=== PATIENT | male | born 1990 | race Asian ===

== ENCOUNTER 2017-11-25 02:08 | Emergency (ER) | payer BC ==
[~2017-11-25] VITALS: Ht 165.1 cm; Wt 72.6 kg
[~2017-11-25 02:08] MED LIST: AMOX500C2 PO; AMX500CIP PO; CIPR500T78 PO; CLIN300C11 PO; HYDR-1231 PO; HYDR-756 PO; HYDR1TAB PO; HYOS0.1216 PO; IBUP800T26 PO; METR500T PO; NAPR-243 PO; SENN17.26 PO; TRAM50TA2 PO; [UNRECOGNIZED DRUG - REMARK] PO
--- OUTSIDE RECORDS SUMMARY | 2017-11-25 02:14 | XMS REPORT ---
Author Author ANDREA LONG Organization [facility] Address [address] [place] [address] Care Team Providers Care Commercial Painter Name Role Phone ANDREA LONG Unavailable PROBLEMS Unknown Problems ALLERGIES Substance Reaction Event Type Date Status Keflex anaphylaxis Drug Allergy Dec, Active SOCIAL HISTORY Never Assessed PLAN OF CARE Activity Details Follow Up prn Reason: VITAL SIGNS Height 64 in 2017-01-10 Weight 165.5 lbs 2017-01-10 Temperature 98.6 degrees Fahrenheit 2017-01-10 Heart Rate 74 bpm 2017-01-10 Respiratory Rate 16 2017-01-10 BMI 28.40 kg/m2 2017-01-10 Blood pressure systolic 120 mmHg 2017-01-10 Blood pressure diastolic 78 mmHg 2017-01-10 MEDICATIONS Medication Instructions Dosage Frequency Start Date End Date Duration Status Chantix Starting Month Kuldeep 0.5 MG X 11 & 1 MG X 42 Orally Once a day one tablet 24h Dec, Active RESULTS No Results PROCEDURES No Known procedures IMMUNIZATIONS No Known Immunizations
--- OUTSIDE RECORDS SUMMARY | 2017-11-25 02:14 | XMS REPORT ---
Author Author ANDREA LONG [facility] Address [address] [place] [address] Care Team Providers Care Automobile Travel Club Counselor Name Role Phone ANDREA LONG Unavailable PROBLEMS Unknown Problems ALLERGIES Substance Reaction Event Type Date Status Keflex anaphylaxis Drug Allergy Dec, Active SOCIAL HISTORY Never Assessed PLAN OF CARE VITAL SIGNS MEDICATIONS No Known Medications RESULTS No Results PROCEDURES No Known procedures IMMUNIZATIONS No Known Immunizations
--- OUTSIDE RECORDS SUMMARY | 2017-11-25 02:14 | XMS REPORT ---
Author Author GITA RAY [facility] eClinicalWorks Address Unknown Phone Unavailable Care Team Providers Care Blacksmith Apprentice Name Role Phone GITA RAY CP Unavailable Allergies, Adverse Reactions, Alerts Substance Reaction Event Type Keflex Info Not Available Drug Allergy Problems Problem Type Condition Code Onset Dates Condition Status Assessment Closed fracture of one rib of right side with routine healing, subsequent encounter S22.31XD Active Medications Medication Code System Code Instructions Start Date End Date Status Dosage Hydrocodone-Acetaminophen [facility] [address]-05 5-325 MG Orally every 6 hrs 1 tablet as needed Procedures Procedure Coding System Code Date Office Visit, Est Pt., Level 2 CPT-4 61487 Aug 26, 2016 Vital Signs Date/Time: Aug 26, 2016 Cardiac Monitoring Heart Rate 80 bpm Weight 149.2 lbs Height 64 in BMI 25.61 Index Blood Pressure Diastolic 81 mmHg Blood Pressure Systolic 118 mmHg Results No Known Results Summary Purpose eClinicalWorks Submission
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
[2017-11-25] MEDS ORDERED: IBUPROFEN 800 MG (MOTRIN) TAB PO STA (03:15)
[2017-11-25] MEDS ORDERED: DOXYCYCLINE 100 MG (VIBRAMYCIN) TABLET PO STA (03:15)
--- NOTE | 2017-11-25 03:15 | ED Lower Extremity ---
General Stated Complaint: HERNIA ON RT SIDE GROIN,HURTS TO COUGH,SWOLLEN Source: patient Exam Limitations: no limitations History of Present Illness Date Seen by Provider: Nov 25, 2017 Time Seen by Provider: 03:03 Initial Comments Here with complaint of pain to the right groin. States that it's worse today. Thinks he might have a hernia. Also has athlete's foot that he's been taking care of with zskr-url-irrcner cream. Does where the same pair of boots every day. Denies problems with bowel movements or bladder. Still having stool and passing gas. Denies fever or chills. Onset: yesterday Severity: moderate Method of Injury: unknown Modifying Factors: Improves With Immobilization, Worse With Movement Allergies and Home Medications Allergies Coded Allergies: Cephalexin Monohydrate (Verified Allergy, Unknown, HIVES, , 08/26/12) Home Medications Hydrocodone/Acetaminophen 1 Each Tablet, 1 EACH PO Q4H PRN for PAIN, #30 Prescribed by: JEFF OSBORN on 08/22/16 1421 Constitutional: see HPI, No chills, No fever Respiratory: no symptoms reported Cardiovascular: no symptoms reported Musculoskeletal: see HPI, muscle pain Skin: no symptoms reported Other Right groin pain with swelling Past Xecmftm-Ahfmdk-Fwmbra Hx Patient Social History Alcohol Use: Occasionally Uses Alcohol Beverage of Choice: Beer Recreational Drug Use: No Smoking Status: Current Everyday Smoker Type Used: Cigarettes Recent Foreign Travel: No Contact w/Someone Who Travel: No Recent Hopitalizations: No Immunizations Up To Date Tetanus Booster (TDap): Less than 5yrs Seasonal Allergies Seasonal Allergies: No Surgeries History of Surgeries: No Respiratory History of Respiratory Disorde: No Cardiovascular History of Cardiac Disorders: No Neurological History of Neurological Disord: No Reproductive System Hx Reproductive Disorders: No Reviewed Nursing Assessment Reviewed/Agree w Nursing PMH: Yes Family Medical History Significant Family History: No Pertinent Family Hx Physical Exam Vital Signs Capillary Refill : General Appearance: WD/WN, no apparent distress Neck: non-tender, full range of motion, supple, No lymphadenopathy (R), No lymphadenopathy (L) Cardiovascular: regular rate, rhythm, no murmur Respiratory: lungs clear, normal breath sounds Gastrointestinal: non tender, soft Feet: bilateral foot other (bilateral feet with fungal infection and multiple little punctate areas consistent with athlete's foot.) Neurologic/Tendon: normal sensation, normal motor functions Neurologic/Psychiatric: alert, oriented x 3 Lymphatic: inguinal node tender (R), No inguinal node tender (L) Laceration Repair : Suture Size: 5-0 Progress/Results/Core Measures Progress Note : Progress Note Seen and evaluated. No hernia noted but there is lymphadenopathy on the right groin. Further inspection of the right leg noted the athlete's foot with the punctate lesions on both feet. I believe the lymphadenopathy is related to this. We will initiate doxycycline and I didn't discuss with the patient about control and treatment of athlete's foot including irritable bladder, frequent sock changes and alternating boots daily. Serzone with return precautions. Patient verbalize understanding instructions and agreement with plan. Departure Impression Impression: Primary Impression: Lymphadenopathy, inguinal Additional Impression: Tinea pedis of both feet Disposition: HOME, SELF-CARE Condition: Stable Departure-Patient Inst. Decision time for Depature: 03:17 Referrals: [facility] (PCP/Family) Primary Care Physician Patient Instructions: Athlete's Foot (DC), LYMPH NODE SWELLING Add. Discharge Instructions: Use antifungal powder to the feet daily per package directions. Change your socks often and alternate boots every other day. You may take ibuprofen 800 mg every 8 hours as needed for pain. You may take Tylenol 1000 mg every 8 hours as needed for pain. Drink plenty of fluids. Follow-up with your DrShannon in a few days for recheck. Return for worse pain, fever, swelling or other concerns as needed. Scripts Doxycycline Hyclate (Doxycycline Hyclate) 100 Mg Tablet 100 MG PO BID, #20 TAB 0 Refills Prov: MARIA ELENA ROSE MD 11/25/17 MARIA ELENA ROSE MD Nov 25, 2017 03:15
[2017-11-25] MEDS ORDERED: DOXY100T2 PO (03:19)
[2017-11-25 03:30] VITALS: BP 138/90
== END 2017-11-25 03:30 | disposition home or self-care (01) ==
LOC: EDUNIT# 02:08 → ER 02:11
DX: B35.3 Tinea pedis (principal); R59.0 Localized enlarged lymph nodes; F17.210 Nicotine dependence, cigarettes, uncomplicated; Z88.1 Allergy status to other antibiotic agents
CPT/HCPCS: 99283

== ENCOUNTER 2018-05-24 17:30 | Emergency (ER) | payer BC ==
[~2018-05-24] VITALS: Ht 162.6 cm; Wt 69.9 kg
[~2018-05-24 17:30] MED LIST changes: +DOXY100T2 PO
[2018-05-24 18:40] LABS: BILIRUBIN,URINE NEGATIVE (NEGATIVE); CLARITY,URINE CLEAR; COLOR,URINE YELLOW; GLUCOSE, URINE (UA) NEGATIVE (NEGATIVE); KETONES,URINE 4+ (NEGATIVE); LEUKOCYTE ESTERASE ,URINE 1+ (NEGATIVE); NITRITE,URINE NEGATIVE (NEGATIVE); PH,URINE 5 (5-9); PROTEIN,URINE 2+ (NEGATIVE); UROBILINOGEN,URINE NORMAL (NORMAL)
[2018-05-24 18:52] LABS: BACTERIA,URINE TRACE /HPF; GRANULAR CASTS,URINE RARE /LPF; SQUAMOUS EPITHELIAL CELL,UR RARE /HPF
[2018-05-24 18:53] LABS: AMPHETAMINE SCREEN, URINE NEGATIVE (NEGATIVE); BARBITURATE SCREEN URINE NEGATIVE (NEGATIVE); BENZODIAZEPINES SCREEN URINE NEGATIVE (NEGATIVE); CANNABINOID SCREEN, URINE NEGATIVE (NEGATIVE); COCAINE SCREEN URINE NEGATIVE (NEGATIVE); METHADONE STAT NEGATIVE (NEGATIVE); METHAMPHETAMINE SCREEN URINE S NEGATIVE (NEGATIVE); OPIATE SCREEN URINE NEGATIVE (NEGATIVE); OXYCODONE STAT NEGATIVE (NEGATIVE); PROPOXYPHENE STAT NEGATIVE (NEGATIVE); TRICYCLIC ANTIDEPRESSANTS SCRE NEGATIVE (NEGATIVE)
--- NOTE | 2018-05-24 19:21 | Diagnostic Imaging Report ---
PROCEDURE: CT cervical spine without contrast. TECHNIQUE: Multiple contiguous axial images were obtained through the cervical spine without the use of intravenous contrast. Sagittal and coronal reformations were then performed. INDICATION: Numbness in the posterior aspect of the bilateral hands. Reports the injury happened yesterday. COMPARISON: None. FINDINGS: There is reversal of the cervical lordosis centered at C5-6, which is nonspecific, and can be due to positioning. There is minimal left convex curvature of the lower cervical spine. No spondylolisthesis is seen. 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 Small disc bulges are noted at C5-6 and C6-7. The paraspinous soft tissues are unremarkable. No acute fracture is seen. IMPRESSION: 1. No acute fracture is seen in the cervical spine. 2. Mild reversal of the cervical lordosis, which is nonspecific and could be positional. 3. 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 Dictated by: Dictated on workstation # [id number]
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
--- NOTE | 2018-05-24 19:26 | Diagnostic Imaging Report ---
PATIENT HISTORY: Fall, numbness in the right knee and distally. TECHNIQUE: AP and lateral views of the right tibia/fibula. COMPARISON: None FINDINGS: No acute fracture or dislocation is seen in the right tibia/fibula. Alignment appears normal. The joint spaces are preserved. A small eccentric sclerotic focus measuring 1.5 cm is seen at the lateral aspect of the distal right tibial metaphysis, most consistent with a fibroxanthoma. IMPRESSION: No acute osseous abnormality is seen in the right tibia/fibula. Dictated by: Dictated on workstation # [id number]
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
--- NOTE | 2018-05-24 19:28 | Diagnostic Imaging Report ---
PATIENT HISTORY: Fall, numbness in the right knee distally. TECHNIQUE: AP view of the pelvis, AP and frog-leg lateral views of the right hip. COMPARISON: CT of the abdomen and pelvis from 07/04/2014 FINDINGS: No acute fracture or dislocation is seen in the pelvis or the right hip. Alignment appears normal. The femoral heads are well-seated in the acetabula bilaterally. Small cystlike changes are seen at the lateral aspect of the head neck junction, may represent a synovial herniation pit, and appear stable since 2013. A bone island is noted at the right acetabulum. IMPRESSION: No acute osseous abnormality seen in the pelvis or right hip. Dictated by: Dictated on workstation # [id number]
[2018-05-24] MEDS ORDERED: NAPR-915 PO (19:32)
[2018-05-24] MEDS ORDERED: RX-CYCLOBENZAPRINE 10 MG (FLEXERIL) TAB PPK#3 PO STA (19:32)
[2018-05-24] MEDS ORDERED: CYCL10TA9 PO (19:32)
[2018-05-24] MEDS ORDERED: RX-NAPROXEN (NAPROSYN) 250 MG TAB PPK#4 PO STA (19:32)
[2018-05-24 19:35] VITALS: BP 123/88
[2018-05-24] MEDS ORDERED: RX-CYCLOBENZAPRINE 10 MG (FLEXERIL) TAB PPK#3 PO ONE (19:56)
[2018-05-24] MEDS ORDERED: RX-NAPROXEN (NAPROSYN) 250 MG TAB PPK#4 PO ONE ×2 (19:56→19:58)
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
== END 2018-05-24 19:35 | disposition home or self-care (01) ==
LOC: EDUNIT# 17:30 → ER 17:32
DX: S39.012A Strain of muscle, fascia and tendon of lower back, initial encounter (principal); R20.2 Paresthesia of skin; D64.9 Anemia, unspecified; F17.210 Nicotine dependence, cigarettes, uncomplicated; Z88.1 Allergy status to other antibiotic agents; Y04.8XXA Assault by other bodily force, initial encounter
CPT/HCPCS: 72125; 72128; 72131; 73590; 80306; 81000

== ENCOUNTER 2018-10-14 12:57 | Emergency (ER) | payer SELFPAY ==
[~2018-10-14] VITALS: Ht 162.6 cm; Wt 67.1 kg
[~2018-10-14 12:57] MED LIST changes: +CYCL10TA9 PO; +HYDR-4227 PO; -HYDR-756 PO; +NAPR-915 PO
--- NOTE | 2018-10-14 14:26 | ED Cough/URI ---
General Chief Complaint: Cough/Cold/Flu Symptoms Stated Complaint: CHEST CONGESTION;COUGH Nursing Triage Note: Pt reports cough and congestion and headache x2 weeks Source: patient Exam Limitations: no limitations History of Present Illness Date Seen by Provider: Oct 14, 2018 Time Seen by Provider: 14:25 Allergies and Home Medications Allergies Coded Allergies: Cephalexin Monohydrate (Verified Allergy, Unknown, HIVES, , 08/26/12) Home Medications Cyclobenzaprine HCl 10 Mg Tablet, 10 MG PO Q8H Prescribed by: JAZZY JANG on 05/24/181931 Doxycycline Hyclate 100 Mg Tablet, 100 MG PO BID Prescribed by: MARIA ELENA ROSE on 11/25/17 0319 Hydrocodone/Acetaminophen 1 Each Tablet, 1 EACH PO Q4H PRN for PAIN Prescribed by: JEFF OSBORN on 08/22/16 1421 Naproxen 500 Mg Tablet, 500 MG PO BID Prescribed by: JAZZY JANG on 05/24/181931 Past Xgtjhcb-Nhmiyb-Nfqzhk Hx Patient Social History Alcohol Beverage of Choice: Beer Type Used: Cigarettes 2nd Hand Smoke Exposure: Yes Recent Foreign Travel: No Contact w/Someone Who Travel: No Recent Infectious Disease Expo: No Recent Hopitalizations: No Immunizations Up To Date Tetanus Booster (TDap): Less than 5yrs Seasonal Allergies Seasonal Allergies: No Past Medical History Surgeries: No Respiratory: No Cardiac: No Neurological: No Reproductive Disorders: No Gastrointestinal: No Musculoskeletal: No Endocrine: No Cancer: No Psychosocial: No Integumentary: No Blood Disorders: Yes (ANEMIA) Family Medical History No Pertinent Family Hx Physical Exam Vital Signs - First Documented 10/14/18 14:16 Temp 98.4 Pulse 98 Resp 18 B/P (MAP) 131/79 (96) Pulse Ox 94 O2 Delivery Room Air Capillary Refill : Less Than 3 Seconds Height: 5'4.00" Weight: 148lbs. oz. 67.738744ex; 22.14 BMI Method:Stated Procedures/Interventions Suture Size: 5-0 Progress/Results/Core Measures Suspected Sepsis Recent Fever Within 48 Hours: No Infection Criteria Present: Suspected New Infection New/Unexplained Altered Menta: No Sepsis Screen: No Definite Risk SIRS Temperature:98.4 Pulse: 98 Respiratory Rate: 18 Blood Pressure 131 /79 Mean: 96 Results/Orders My Orders Orders - FRANCIS WOODY Chest 1 View, Ap/Pa Only (10/14/18 14:23) Vital Signs/I&O 10/14/18 14:16 Temp 98.4 Pulse 98 Resp 18 B/P (MAP) 131/79 (96) Pulse Ox 94 O2 Delivery Room Air Capillary Refill : Less Than 3 Seconds Blood Pressure Mean: 96 Departure Impression Primary Impression: Bronchitis Disposition: 01 HOME, SELF-CARE Condition: Stable/Unchanged Departure-Patient Inst. Decision time for Depature: 14:28 Referrals: [facility] (PCP/Family) Primary Care Physician Patient Instructions: Bronchiolitis (DC) Add. Discharge Instructions: You may use Tylenol and ibuprofen as needed for pain. Take medications as directed. Follow-up with her primary care provider within 1 week for recheck. Return back to the emergency room for any worsening symptoms or concerns as needed. All discharge instructions reviewed with patient and/or family. Voiced understanding. Scripts Promethazine/Dextromethorphan (Promethazine-Dm Syrup) 473 Ml Syrup 5 ML PO Q6H PRN for COUGH, #60 ML Prov: FRANCIS WOODY 10/14/18 Azithromycin (Zithromax) 250 Mg Tablet 250 MG PO UD for 1 Day, #6 TAB TAKE 2 TABLETS TODAY, THEN TAKE 1 TABLET DAILY FOR 4 MORE DAYS Prov: FRANCIS WOODY 10/14/18 Methylprednisolone (Medrol) 4 Mg Tab.ds.pk 4 MG PO UD, #1 PKG Prov: FRANCIS WOODY 10/14/18 FRANCIS WOODY Oct 14, 2018 14:26
[2018-10-14] MEDS ORDERED: METH4TAB PO (14:30)
[2018-10-14] MEDS ORDERED: D-ME473S38 PO (14:30)
[2018-10-14] MEDS ORDERED: AZIT250T PO (14:30)
--- OUTSIDE RECORDS SUMMARY | 2018-10-14 14:47 | XMS REPORT ---
Author Author HERRERA BROTHERS [facility] Address [address] [place] [address] Care Team Providers Care Cobol Programmer Name Role Phone DENEEN HERRERA Unavailable PROBLEMS Unknown Problems ALLERGIES No Information ENCOUNTERS Encounter Location Date Diagnosis [place] [id number] [place] [address] May, [place] [address] [address] May, [place] [address] [address] May, Strain of lumbar region, initial encounter S39.012A [place] [id number] [place] [address] May, Abscess L02.91 [place] [address] [address] Dec, Tobacco use Z72.0 and Tobacco abuse counseling Z71.6 [place] [id number] [place] [address] Dec, [place] [address] [address] Aug, Closed fracture of one rib of right side with routine healing, subsequent encounter S22.31XD [place] [address] [address] Jan, [place] [id number] [place] [address] Oct, [place] [address] [address] Oct, [facility] [address] [facility] [id number] [address] Aug, [facility] [address] [id number] [address] Aug, [facility] [address] [facility] [id number], [place] [address] February, [facility] [address] [address] Jan, [facility] [address] [facility] [id number], [place] [address] Jan, [facility] [address] [address] Dec, [facility] [address] [id number] [address] Nov, [facility] [id number], [place] [address] Nov, [facility] [address] [id number] [id number] Nov, [facility] [address] [id number] [address] Sep, [facility] [id number] [address] Aug, [facility] [id number] [address] February, [facility] [address] [facility] [id number], [place] [address] Jul, IMMUNIZATIONS No Known Immunizations SOCIAL HISTORY Never Assessed REASON FOR VISIT Lab order request PLAN OF CARE VITAL SIGNS MEDICATIONS Unknown Medications RESULTS No Results PROCEDURES No Known procedures INSTRUCTIONS MEDICATIONS ADMINISTERED No Known Medications MEDICAL (GENERAL) HISTORY Type Description Date Surgical History lymph node removed 2013
--- OUTSIDE RECORDS SUMMARY | 2018-10-14 14:47 | XMS REPORT ---
Author Author TJ ROSS [facility] Address [address] [place] [address] Care Team Providers Care Life Manager Name Role Phone ROSI ROSSTA Unavailable PROBLEMS Unknown Problems ALLERGIES No Information ENCOUNTERS Encounter Location Date Diagnosis [facility] [address] [address] Sep, [facility] [id number] [place] [address] Sep, [facility] [id number] [place] [address] Sep, Strain of right knee, initial encounter S86.911A [facility] [address] [place] [address] May, [facility] [id number] [place] [address] May, [facility] [id number] [place] [address] May, Strain of lumbar region, initial encounter S39.012A [facility] [id number] [place] [address] May, Abscess L02.91 [facility] [address] [address] Dec, Tobacco use Z72.0 and Tobacco abuse counseling Z71.6 [place] [address] [place] [address] Dec, [facility] [id number] [place] [address] Aug, Closed fracture of one rib of right side with routine healing, subsequent encounter S22.31XD [facility] [address] [id number] [place] [address] Jan, [facility] [id number] [address] Oct, [facility] [id number] [address] Oct, [facility] [address] [id number] [address] Aug, [facility] [address] [id number] [address] Aug, [facility] [address] [id number] [address] February, [facility] [address] [address] Jan, [facility] [address] [address] Jan, [facility] [address] [address] Dec, [facility] [address] [address] Nov, [facility] [id number] [address] Nov, [facility] [address] [id number] [id number] Nov, [facility] [address] [id number] [address] Sep, [facility] [id number] [address] Aug, [facility] [id number] [address] February, [facility] [address] [facility] [id number] [address] Jul, IMMUNIZATIONS No Known Immunizations SOCIAL HISTORY Never Assessed REASON FOR VISIT DI results PLAN OF CARE VITAL SIGNS MEDICATIONS Unknown Medications RESULTS No Results PROCEDURES No Known procedures INSTRUCTIONS MEDICATIONS ADMINISTERED No Known Medications MEDICAL (GENERAL) HISTORY Type Description Date Surgical History lymph node removed 2013
--- OUTSIDE RECORDS SUMMARY | 2018-10-14 14:47 | XMS REPORT ---
Author Author TJ ROSS [facility] Address [address] [place] [address] Care Team Providers Care Compact Assembler Name Role Phone KING TJ Unavailable PROBLEMS Unknown Problems ALLERGIES No Information ENCOUNTERS Encounter Location Date Diagnosis [facility] [id number] [place] [address] 74505- 8928 Sep, [facility] [id number] [place] [address] 73123- 3914 Sep, [facility] [id number] [place] [address] 36223- 6274 Sep, [facility] [id number] [place] [address] 43851- 8947 Sep, Strain of right knee, initial encounter S86.911A [facility] [id number] [place] [address] 34489- 3236 May, [facility] [id number] [place] [address] 12109- 4279 May, [facility] [id number] [place] [address] 03314- 3122 May, Strain of lumbar region, initial encounter S39.012A [facility] [address] [place] [address] 50577- 8030 May, Abscess L02.91 [facility] [id number] [place] [address] 66993- 8592 Dec, Tobacco use Z72.0 and Tobacco abuse counseling Z71.6 [place] [id number] [place] [address] 16731- 2160 Dec, [facility] [address] [facility] [address] [facility] [id number], [place] [address] 4231 Aug, Closed fracture of one rib of right side with routine healing, subsequent encounter S22.31XD [facility] [address] [id number] [place] [address] 8655 Jan, [facility] [address] [id number], [place] [address] 5064 Oct, [facility] [address] [facility] [id number], [place] [address] 8751 Oct, [facility] [address] [id number], [place] [address]- 7367 Aug, [facility] [address] [id number], [place] [address] 0364 Aug, [facility] [address], [place] [address] 3867 February, [facility] [address] [id number], [place] [address] 2965 Jan, [facility] [address], [place] [address]- 7930 Jan, [facility] [address], [place] [address]- 3082 Dec, [facility] [address], [place] [address]- 0998 Nov, [facility] [address] [id number], [place] [address] 5799 Nov, [facility] [address] [id number] [id number] Nov, [facility] [address] [id number] 9225 Sep, [facility] [address] [id number], [place] [address]- 8078 Aug, [facility] [address] [address] [facility] [id number] [place] [address] 9523 February, [facility] [address] [facility] [id number] [place] [address] [address] Jul, IMMUNIZATIONS No Known Immunizations SOCIAL HISTORY Never Assessed REASON FOR VISIT Requests return call PLAN OF CARE VITAL SIGNS MEDICATIONS Unknown Medications RESULTS No Results PROCEDURES No Known procedures INSTRUCTIONS MEDICATIONS ADMINISTERED No Known Medications MEDICAL (GENERAL) HISTORY Type Description Date Surgical History lymph node removed 2013
--- OUTSIDE RECORDS SUMMARY | 2018-10-14 14:47 | XMS REPORT ---
Author Author GITA RAY Organization [facility] Address [address] [place] [address] Care Team Providers Care Textile Cutting Machine Operator Name Role Phone GITA RAY Unavailable PROBLEMS Unknown Problems ALLERGIES Substance Reaction Event Type Date Status Keflex anaphylaxis Drug Allergy May, Active ENCOUNTERS Encounter Location Date Diagnosis [place] [address] 18210- 2545 May, [facility] [id number] [place] [address] 85566- 0119 May, [place] [address] 90389- 4943 May, Strain of lumbar region, initial encounter S39.012A [place] [id number] [place] [address] 13936- 9426 May, Abscess L02.91 [place] [id number] [place] [address] 50050- 8476 Dec, Tobacco use Z72.0 and Tobacco abuse counseling Z71.6 [place] [id number] [place] [address] 16345- 3035 Dec, [place] [id number] [place] [address] 56664- 8325 Aug, Closed fracture of one rib of right side with routine healing, subsequent encounter S22.31XD [place] [id number] [place] [address] 41370- 6628 Jan, [place] [id number] [place] [address] 29155- 3384 Oct, [place] [address] [place] [address]- 2546 Oct, [facility] [address] [id number], [place] [address]- 2546 Aug, [facility] [address] [id number], [place] [address]- 2546 Aug, [facility] [address] [id number], [place] [address]- 2546 February, [facility] [address]65100[place], [place] [address]- 2546 Jan, [facility] [address]65[address], [place] [address]- 2546 Jan, [facility] [address], [place] [address]- 2546 Dec, [facility] [address]65[address], [place] [address]- 2546 Nov, [facility] [address] [id number], [place] [address]- 2546 Nov, [facility] [address] [id number] [id number] Nov, [facility] [address] [id number], [place] [address]- 2546 Sep, [facility] [address] [id number], [place] [address]- 2546 Aug, [facility] [address] [id number], [place] [address]- 2546 February, [facility] [address] [id number], [place] [address]- 2546 Jul, IMMUNIZATIONS No Known Immunizations SOCIAL HISTORY Never Assessed REASON FOR VISIT Hospital f/u, Pt went to the Hospital on Friday due to possible never damage lower part of spine. MALLORY Nguyen PLAN OF CARE Activity Details Follow Up prn Reason: VITAL SIGNS Height 64 in 2018-05-28 Weight 145.7 lbs 2018-05-28 Temperature 98.4 degrees Fahrenheit 2018-05-28 Heart Rate 100 bpm 2018-05-28 Respiratory Rate 18 2018-05-28 BMI 25.01 kg/m2 2018-05-28 Blood pressure systolic 122 mmHg 2018-05-28 Blood pressure diastolic 80 mmHg 2018-05-28 MEDICATIONS Medication Instructions Dosage Frequency Start Date End Date Duration Status Naproxen 500 mg Orally Twice a day, poc 1 tablet Active Cyclobenzaprine HCl 10 MG Orally Three times a day 1 tablet as needed 8h Active RESULTS No Results PROCEDURES No Known procedures INSTRUCTIONS MEDICATIONS ADMINISTERED No Known Medications MEDICAL (GENERAL) HISTORY Type Description Date Surgical History lymph node removed 2013
--- OUTSIDE RECORDS SUMMARY | 2018-10-14 14:47 | XMS REPORT ---
Author Author KING TJ [facility] Address [address] [place] [address] Care Team Providers Care Vmware Systems Administrator Name Role Phone TJ ROSS Unavailable PROBLEMS Unknown Problems ALLERGIES Substance Reaction Event Type Date Status Keflex anaphylaxis Drug Allergy Sep, Active ENCOUNTERS Encounter Location Date Diagnosis [facility] [id number] [place] [address] 72901- 1748 Sep, [place] [id number] [place] [address] 46995- 4692 Sep, Strain of right knee, initial encounter S86.911A [place] [id number] [place] [address] 83042- 7729 May, [facility] [id number] [place] [address] 30250- 6016 May, [place] [id number] [place] [address] 30243- 3424 May, Strain of lumbar region, initial encounter S39.012A [place] [id number] [place] [address] 66184- 2604 May, Abscess L02.91 [place] [address] [place] [address] 77743- 2237 Dec, Tobacco use Z72.0 and Tobacco abuse counseling Z71.6 [place] [id number] [place] [address] 93464- 3268 Dec, [place] [address] [place] [address] 95045- 8123 Aug, Closed fracture of one rib of right side with routine healing, subsequent encounter S22.31XD [place] [address] [id number] [place] [address]- 4186 Jan, [facility] [address] [id number] [place] [address]- 4406 Oct, [facility] [address] [id number] [place] [address]- 2546 Oct, [facility] [address] [id number] [place] [address]- 6181 Aug, [facility] [address] [id number] [place] [address]- 5938 Aug, [facility] [place] [facility] [address] [id number] [place] [address]- 1916 February, [facility] [address] [id number] [place] [address]- 2746 Jan, [facility] [address] [id number] [place] [address]- 2666 Jan, [facility] [address] [id number] [place] [address]- 0471 Dec, [facility] [address] [facility] [id number] [place] [address]- 4866 Nov, [facility] [address] [facility] [id number] [address]- 9936 Nov, [facility] [address] [id number] [id number] Nov, [facility] [address] [id number][place] [address]- 3326 Sep, [facility] [place] [facility] [address] [id number] [place] [address]- 2546 Aug, [facility] [place] [facility] [address] [id number] [place] [address]- 2546 February, [facility] [address] [id number] [place] [address]- 5956 Jul, IMMUNIZATIONS No Known Immunizations SOCIAL HISTORY Never Assessed REASON FOR VISIT Pain in his right knee x10 days K Dereck TEJADA PLAN OF CARE Activity Details Follow Up if not improving with PCP or reg follow up Reason:knee pain Pending Test Xray : Knee, Right 3 views (IN HOUSE) VITAL SIGNS Height 64 in 2018-09-24 Weight 149.9 lbs 2018-09-24 Temperature 97.6 degrees Fahrenheit 2018-09-24 Heart Rate 101 bpm 2018-09-24 Respiratory Rate 18 2018-09-24 BMI 25.73 kg/m2 2018-09-24 Blood pressure systolic 124 mmHg 2018-09-24 Blood pressure diastolic 76 mmHg 2018-09-24 MEDICATIONS Medication Instructions Dosage Frequency Start Date End Date Duration Status Naproxen 500 mg Orally every 12 hrs 1 tablet with food or milk as needed 12h Sep, 14 days Active RESULTS No Results PROCEDURES Procedure Date Ordered Result Body Site X-RAY EXAM OF KNEE, 3 Sep 24, 2018 INSTRUCTIONS MEDICATIONS ADMINISTERED No Known Medications MEDICAL (GENERAL) HISTORY Type Description Date Surgical History lymph node removed 2013
--- OUTSIDE RECORDS SUMMARY | 2018-10-14 14:47 | XMS REPORT ---
Author Author TJ ROSS [facility] Address [address] [place] [address] Care Team Providers Care Lot Associate Name Role Phone KING TJ Unavailable PROBLEMS Unknown Problems ALLERGIES No Information ENCOUNTERS Encounter Location Date Diagnosis [facility] [id number] [place] [address] 06196- 8760 Sep, [facility] [id number] [place] [address] 94679- 9812 Sep, [facility] [id number] [place] [address] 58400- 4408 Sep, [facility] [id number] [place] [address] 33831- 9528 Sep, Strain of right knee, initial encounter S86.911A [facility] [id number] [place] [address] 94835- 9091 May, [facility] [id number] [place] [address] 98960- 7184 May, [facility] [id number] [place] [address] 85560- 0459 May, Strain of lumbar region, initial encounter S39.012A [facility] [address] [place] [address] 50106- 7419 May, Abscess L02.91 [facility] [id number] [place] [address] 57899- 7236 Dec, Tobacco use Z72.0 and Tobacco abuse counseling Z71.6 [place] [id number] [place] [address] 18517- 3159 Dec, [facility] [address] [facility] [id number], [place] [address]- 2138 Aug, Closed fracture of one rib of right side with routine healing, subsequent encounter S22.31XD [facility] [address] [id number] [place] [address]- 7840 Jan, [facility] [address] [id number], [place] [address]- 4242 Oct, [facility] [address] [facility] [id number], [place] [address]- 8826 Oct, [facility] [address] [id number], [place] [address]- 1855 Aug, [facility] [address] [id number], [place] [address]- 4027 Aug, [facility] [address], [place] [address]- 2631 February, [facility] [address] [id number], [place] [address]- 1189 Jan, [facility] [address], [place] [address]- 7898 Jan, [facility] [address], [place] [address]- 5231 Dec, [facility] [address], [place] [address]- 1044 Nov, [facility] [address] [id number], [place] [address]- 8312 Nov, [facility] [address] [id number] [place] [id number] Nov, [facility] [address] [id number] [address] 5271 Sep, [facility] [address] [id number], [place] [address]- 6850 Aug, [facility] [address] [facility] [id number] [place] [address] 7001 February, [facility] [address] [facility] [id number] [place] [address] 1237 Jul, IMMUNIZATIONS No Known Immunizations SOCIAL HISTORY Never Assessed REASON FOR VISIT Requests return call PLAN OF CARE VITAL SIGNS MEDICATIONS Unknown Medications RESULTS No Results PROCEDURES No Known procedures INSTRUCTIONS MEDICATIONS ADMINISTERED No Known Medications MEDICAL (GENERAL) HISTORY Type Description Date Surgical History lymph node removed 2013
--- OUTSIDE RECORDS SUMMARY | 2018-10-14 14:48 | XMS REPORT ---
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 Machine Operator Name Role Phone GITA RAY Unavailable PROBLEMS Unknown Problems ALLERGIES No Information ENCOUNTERS Encounter Location Date Diagnosis [place] [address] [address]282- 6813 May, [place] [address] 22127- 2908 May, [place] [address] 15019- 2896 May, Strain of lumbar region, initial encounter S39.012A [place] [id number] [place] [address] 16646- 2270 May, Abscess L02.91 [place] [address] 31243- 2556 Dec, Tobacco use Z72.0 and Tobacco abuse counseling Z71.6 [place] [id number] [place] [address] 82516- 5620 Dec, [place] [address] 61807- 8723 Aug, Closed fracture of one rib of right side with routine healing, subsequent encounter S22.31XD [place] [address] 33109- 0228 Jan, [place] [id number] [place] [address] 25550- 4899 Oct, [place] [address] 49284- 7838 Oct, [facility] [address] [facility] [id number] [address]- 2546 Aug, [facility] [address] [facility] [id number] [address]- 2546 Aug, [facility] [address] [facility] [id number] [address]- 2546 February, [facility] [address] [facility] [id number] [place] [address]- 2546 Jan, [facility] [address] [facility] [id number] [place] [address]- 2546 Jan, [facility] [address] [facility] [id number] [address]- 2546 Dec, [facility] [address] [id number] [address]- 2546 Nov, [facility] [address] [id number] [address]- 2546 Nov, [facility] [address] [facility] [id number][place] [id number] Nov, [facility] [address] [facility] [id number] [address]- 2546 Sep, [facility] [address] [id number] [address]- 2546 Aug, [facility] [address] [id number] [address]- 2546 February, [facility] [address] [facility] [id number] [place] [address]- 2546 Jul, IMMUNIZATIONS No Known Immunizations SOCIAL HISTORY Never Assessed REASON FOR VISIT clarification on script PLAN OF CARE VITAL SIGNS MEDICATIONS Medication Instructions Dosage Frequency Start Date End Date Duration Status Naproxen 500 mg Orally 2 times a day 1 tablet with food or milk as needed 12h May, Active RESULTS No Results PROCEDURES No Known procedures INSTRUCTIONS MEDICATIONS ADMINISTERED No Known Medications MEDICAL (GENERAL) HISTORY Type Description Date Surgical History lymph node removed 2013
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
--- NOTE | 2018-10-14 15:05 | Diagnostic Imaging Report ---
INDICATION: Cough and congestion. TIME OF EXAM: 02:54 p.m. COMPARISON: Comparison is made with prior chest from 03/21/2016. FINDINGS: The heart size is normal. The pulmonary vascularity is unremarkable. The lungs are clear. No infiltrate, effusion or pneumothorax is detected. IMPRESSION: No acute cardiopulmonary process is detected. Dictated by: Dictated on workstation # [id number]
[2018-10-14 15:16] VITALS: BP 131/79
== END 2018-10-14 15:16 | disposition home or self-care (01) ==
LOC: EDUNIT# 12:57 → ER 12:59
DX: J40 Bronchitis, not specified as acute or chronic (principal); Z88.1 Allergy status to other antibiotic agents; Z77.22 Contact with and (suspected) exposure to environmental tobacco smoke (acute) (chronic)
CPT/HCPCS: 71045

== ENCOUNTER 2018-11-09 16:26 | Emergency (ER) | payer SELFPAY ==
[~2018-11-09] VITALS: Ht 162.6 cm; Wt 63.5 kg
[~2018-11-09 16:26] MED LIST changes: +AZIT250T PO; +D-ME473S38 PO; +METH4TAB PO
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
--- NOTE | 2018-11-09 17:15 | ED Fall/Injury ---
General Chief Complaint: Trauma-Non Activation Stated Complaint: FALL/R BACK INJ Nursing Triage Note: SEE TRIAGE. Source: patient Exam Limitations: no limitations History of Present Illness Date Seen by Provider: Nov 09, 2018 Time Seen by Provider: 16:42 Initial Comments Here with report of difficulty with extending his fingers and wrist. Reports that he had fall from a barstool on Friday night after it broke and he fell to the ground. He did land on his right shoulder and arm. Complains of some right -sided chest pain and the difficulty with the hand movement. He didn't really notice that until Friday morning but has had it since yesterday (Friday) morning. Denies breathing problems. He is trying to get into his doctor today and was unable to. Denies breathing problems or bruising. Denies other injury. Denies hitting his head or pain in his neck. Location Injury Occurred: HOME Occurred: other (3 days ago with symptoms onset yesterday morning) Severity: moderate Injuries/Pain Location: upper extremity, chest Context: lost balance Loss of Consciousness: no loss of consciousness Modifying Factors: Improves With Rest Associated Symptoms (Fall): Chest Pain (right chest wall); No Muscle Spasms, No Neck Pain, No Shortness of Air Allergies and Home Medications Allergies Coded Allergies: Cephalexin Monohydrate (Verified Allergy, Unknown, HIVES, , 08/26/12) Home Medications Azithromycin 250 Mg Tablet, 250 MG PO UD TAKE 2 TABLETS TODAY, THEN TAKE 1 TABLET DAILY FOR 4 MORE DAYS Prescribed by: FRANCIS WOODY on 10/14/18 1430 Cyclobenzaprine HCl 10 Mg Tablet, 10 MG PO Q8H Prescribed by: JAZZY JANG on 05/24/181931 Doxycycline Hyclate 100 Mg Tablet, 100 MG PO BID Prescribed by: MARIA ELENA ROSE on 11/25/17 0319 Hydrocodone/Acetaminophen 1 Each Tablet, 1 EACH PO Q4H PRN for PAIN Prescribed by: JEFF OSBORN on 08/22/16 1421 Methylprednisolone 4 Mg Tab.ds.pk, 4 MG PO UD Prescribed by: FRANCIS WOODY on 10/14/18 143 Naproxen 500 Mg Tablet, 500 MG PO BID Prescribed by: JAZZY JANG on 05/24/18 193 Promethazine/Dextromethorphan 473 Ml Syrup, 5 ML PO Q6H PRN for COUGH Prescribed by: FRANCIS WOODY on 10/14/18 1430 Patient Home Medication List Home Medication List Reviewed: Yes Review of Systems Review of Systems Constitutional: no symptoms reported Respiratory: no symptoms reported Cardiovascular: no symptoms reported Musculoskeletal: No muscle stiffness; muscle weakness; No neck pain Skin: no symptoms reported; No change in color Psychiatric/Neurological: See HPI Past Hsvbiof-Gezqgc-Gqffyp Hx Past Med/Social Hx: Reviewed Nursing Past Med/Soc Hx Patient Social History Alcohol Use: Occasionally Uses Number of Drinks Today: AA Alcohol Beverage of Choice: Beer Recreational Drug Use: No Smoking Status: Current Everyday Smoker Type Used: Cigarettes 2nd Hand Smoke Exposure: Yes Recent Foreign Travel: No Contact w/Someone Who Travel: No Recent Infectious Disease Expo: No Recent Hopitalizations: No Physical Abuse: No Sexual Abuse: No Immunizations Up To Date Tetanus Booster (TDap): Less than 5yrs Seasonal Allergies Seasonal Allergies: No Past Medical History Surgeries: No Respiratory: No Cardiac: No Neurological: No Reproductive Disorders: No Genitourinary: No Gastrointestinal: No Musculoskeletal: No Endocrine: No HEENT: No Cancer: No Psychosocial: No Integumentary: No Blood Disorders: Yes (ANEMIA) Family Medical History Reviewed Nursing Family Hx No Pertinent Family Hx Physical Exam Vital Signs Vital Signs - First Documented 11/09/18 16:34 Temp 99.0 Pulse 94 Resp 17 B/P (MAP) 149/93 (111) Pulse Ox 98 O2 Delivery Room Air Capillary Refill : Less Than 3 Seconds Height, Weight, BMI Height: 5'4.00" Weight: 140lbs. oz. 63.467899jy; 22.14 BMI Method:Stated General Appearance: WD/WN, no apparent distress HEENT: PERRL/EOMI, pharynx normal Neck: non-tender, full range of motion, supple, normal inspection Cardiovascular: regular rate, rhythm, no murmur Respiratory: lungs clear, normal breath sounds Gastrointestinal: non tender, soft Extremities: other (full range of motion of both shoulders and elbows with equal strength bilateral. 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 Able to flex and extend some bilateral equally. Wrist and finger extension of the right hand is decreased and unable to extend fully the fingers and unable to extend the wrist past neutral position on the right.) Neurologic/Psychiatric: alert, normal mood/affect Skin: normal color, warm/dry Walker Coma Score Best Eye Response: (4) Open Spontaneously Best Verbal Response: (5) Oriented Best Motor Response: (6) Obeys Commands Procedures/Interventions Suture Size: 5-0 Progress/Results/Core Measures Results/Orders My Orders Orders - MARIA ELENA ROSE MD Ribs/Unilateral With Chest (11/09/18 16:52) Shoulder, Right, 3 Views (11/09/18 16:52) Vital Signs/I&O 11/09/18 16:34 Temp 99.0 Pulse 94 Resp 17 B/P (MAP) 149/93 (111) Pulse Ox 98 O2 Delivery Room Air Blood Pressure Mean: 111 Progress Progress Note : Progress Note Seen and evaluated. X-ray right shoulder, chest and ribs. Monitor patient. No acute fractures or findings on x-rays. Patient strongly encouraged and instructed to follow-up with his doctor for further evaluation related to the probable nerve injury/palsy. Discharged home with return precautions. Patient verbalized understanding instructions and agreement with plan. Diagnostic Imaging Diagonstic Imaging: Xray Plain Films/CT/US/NM/MRI: chest Comments NAME: ISHA CHISHOLM MED REC#: [id number] PT STATUS: REG ER : 1990 PHYSICIAN: MARIA ELENA ROSE MD ADMIT DATE: 11/09/18/ER Draft Date of Exam:11/09/18 RIBS/UNILATERAL WITH CHEST INDICATION: Fall, chest and rib pain. COMPARISON: 10/14/2018. FINDINGS: Single view of the chest and multiple views of the right ribs demonstrate clear lungs bilaterally. The heart is normal. There is no pneumothorax. Visualized ribs are grossly intact. No osseous lesion is seen. IMPRESSION: Negative chest and right ribs. Dictated on workstation # [id number] Dict: 11/09/18 1726 Trans: 11/09/18 [id number] Interpreted by: LEONARDA MACARIO Electronically signed by: NAME: ISHA CHISHOLM MED REC#: [id number] PT STATUS: REG ER : 1990 PHYSICIAN: MARIA ELENA ROSE MD ADMIT DATE: 11/09/18/ER Draft Date of Exam:11/09/18 RIBS/UNILATERAL WITH CHEST INDICATION: Fall, chest and rib pain. COMPARISON: 10/14/2018. FINDINGS: Single view of the chest and multiple views of the right ribs demonstrate clear lungs bilaterally. The heart is normal. There is no pneumothorax. Visualized ribs are grossly intact. No osseous lesion is seen. IMPRESSION: Negative chest and right ribs. Dictated on workstation # [id number] Dict: 11/09/181725 Trans: 11/09/18 [phone] Interpreted by: LEONARDA MACARIO Electronically signed by: Reviewed: Reviewed by Me Diagonstic Imaging: Xray Plain Films/CT/US/NM/MRI: other Comments NAME: KATHRINEISHA Joseph MED REC#: [id number] PT STATUS: REG ER : 1990 PHYSICIAN: MARIA ELENA ROSE MD ADMIT DATE: 11/09/18/ER Draft Date of Exam:11/09/18 SHOULDER, RIGHT, 3 VIEWS INDICATION: Right shoulder pain COMPARISON: None FINDINGS: 3 views of the right shoulder demonstrate no fracture or dislocation. Articular surfaces are normal. No osseous lesion. IMPRESSION: Negative right shoulder Dictated on workstation # [id number] Dict: 11/09/181725 Trans: 11/09/18 1750 [facility] [phone] Interpreted by: LEONARDA MACARIO Electronically signed by: Reviewed: Reviewed by Me Departure Impression Primary Impression: Nerve palsy Additional Impression: Chest wall contusion Qualified Codes: S20.211A - Contusion of right front wall of thorax, initial encounter Disposition: HOME, SELF-CARE Condition: Improved Departure-Patient Inst. Decision time for Depature: 18:01 Referrals: [facility] (PCP/Family) Primary Care Physician Patient Instructions: Contusion (DC) Add. Discharge Instructions: All discharge instructions reviewed with patient and/or family. Voiced understanding. You may take ibuprofen 600 mg every 8 hours as needed for pain. You need to follow-up with your DrShannon in one to 2 days for recheck and further evaluation related to the weakness of your finger and wrist muscle. This is likely a nerve palsy that may heal on its own but if not improving and if few days to a week needs to be rechecked and further evaluated. You may need referral to specialists related to brachial plexus injury (nerve injury). Discussed this with her doctor. Return for worse pain, weakness, breathing problems or other concerns as needed. Copy Copies To 1: HERRERA BROTHERS TIMOTHY D MD Nov 09, 2018 17:15
--- NOTE | 2018-11-09 17:20 | NUR ---
PT REPORTS HE WAS @ THE BAR WHEN HE FELL OFF THE BAR STOOL.
--- NOTE | 2018-11-09 17:51 | Diagnostic Imaging Report ---
INDICATION: Fall, chest and rib pain. COMPARISON: 10/14/2018. FINDINGS: Single view of the chest and multiple views of the right ribs demonstrate clear lungs bilaterally. The heart is normal. There is no pneumothorax. Visualized ribs are grossly intact. No osseous lesion is seen. IMPRESSION: Negative chest and right ribs. Dictated by: Dictated on workstation # [id number]
--- NOTE | 2018-11-09 17:51 | Diagnostic Imaging Report ---
INDICATION: Right shoulder pain COMPARISON: None FINDINGS: 3 views of the right shoulder demonstrate no fracture or dislocation. Articular surfaces are normal. No osseous lesion. IMPRESSION: Negative right shoulder Dictated by: Dictated on workstation # [id number]
[2018-11-09 18:14] VITALS: BP 131/92
== END 2018-11-09 18:14 | disposition home or self-care (01) ==
LOC: EDUNIT# 16:26 → ER 16:27
DX: R07.89 Other chest pain (principal); G58.9 Mononeuropathy, unspecified; D64.9 Anemia, unspecified; M25.511 Pain in right shoulder; R40.2142 Coma scale, eyes open, spontaneous, at arrival to emergency department; R40.2252 Coma scale, best verbal response, oriented, at arrival to emergency department; R40.2362 Coma scale, best motor response, obeys commands, at arrival to emergency department; F17.210 Nicotine dependence, cigarettes, uncomplicated; Z88.1 Allergy status to other antibiotic agents; Z79.52 Long term (current) use of systemic steroids; W17.89XA Other fall from one level to another, initial encounter; Y92.009 Unspecified place in unspecified non-institutional (private) residence as the place of occurrence of the external cause
CPT/HCPCS: 71101; 73030